=== PATIENT | female | born 1965 | race African-American/Black ===

== ENCOUNTER → 2016-07-01 | Outpatient (CLI) | payer BC ==
--- NOTE | 2016-07-01 15:55 | RAD ---
DATE: 07/01/2016: EXAM: DIGITAL SCREEN BILAT W/CAD HISTORY: Routine screening COMPARISON: Baseline study This study was interpreted with the benefit of Computerized Aided Detection (CAD). FINDINGS: The breasts are heterogeneously dense which can limit the sensitivity of mammography. No breast mass is identified. A few scattered benign type calcifications are noted. No suspicious microcalcifications are evident. Benign-appearing lymph node type densities are present in the axillary regions. IMPRESSION: There is no mammographic evidence of malignancy in either breast. BI-RADS CATEGORY: 2 BENIGN FINDING(S) RECOMMENDED FOLLOW-UP: 12M 12 MONTH FOLLOW-UP PQRS compliance statement: Patient information was entered into a reminder system with a target due date for the next mammogram. Mammography is a sensitive method for finding small breast cancers, but it does not detect them all and is not a substitute for careful clinical examination. A negative mammogram does not negate a clinically suspicious finding and should not result in delay in biopsying a clinically suspicious abnormality. "Our facility is accredited by the [employer] Mammography Program."
== END | disposition home or self-care (01) ==
LOC: MAMMO 12:26
PROVIDERS: ATTEND Internal Medicine
DX: Z12.31 Encounter for screening mammogram for malignant neoplasm of breast (principal)
CPT/HCPCS: G0202; 77067

== ENCOUNTER → 2016-07-12 | Outpatient (CLI) | payer OTHER, BC ==
--- NOTE | 2016-07-12 16:39 | RAD ---
PROCEDURE MRI lumbar spine without contrast. HISTORY Mid back pain and right hip pain. TECHNIQUE Sagittal T1, sagittal T2, sagittal STIR, axial T1, and axial T2 sequences are provided. COMPARISON None. FINDINGS There is no malalignment. There is endplate edema which appears degenerative at L4-L5. There is fatty replacement of the endplates at L3-L4. Narrowing of the interspace is greatest at L3-L4. There is diffuse disc desiccation. There is an L1 hemangioma. Conus medullaris is normal in signal intensity and in position. Subcutaneous edema is noted. The numbering system assumes 5 lumbar type vertebral bodies. Findings by individual level are as follows: L1-L2: There is no canal or foraminal compromise. L2-L3: There is a mild disc bulge and minimal facet hypertrophy without canal stenosis. There is minimal foraminal narrowing. L3-L4: There is a disc osteophyte complex and facet hypertrophy. There is a shallow right paracentral protrusion superimposed on the disc osteophyte complex. There is mild to moderate right and mild left foraminal narrowing. L4-L5: There is a diffuse disc bulge and there is a should broad-based shallow left paracentral protrusion. There is facet and ligamentum flavum hypertrophy. There is mild left lateral recess narrowing. Midline AP diameter of the thecal sac is not significantly narrowed, 13 millimeters. There is minimal foraminal narrowing. L5-S1: Disc bulge and facet hypertrophy are noted without canal or foraminal compromise. IMPRESSION Mild degenerative changes in the lumbar spine, as described above. Electronically signed by: Christian Murphy MD (Jul 12, 2016 16:37:27)
== END | disposition home or self-care (01) ==
LOC: MRI 08:00
PROVIDERS: ATTEND Physical Medicine & Rehabilitation
DX: M51.37 Other intervertebral disc degeneration, lumbosacral region (principal)
CPT/HCPCS: 72148

== ENCOUNTER → 2020-02-06 | Outpatient (CLI) | payer OTHER ==
--- NOTE | 2020-02-06 16:09 | KCIC ---
Examination: 1. Bilateral standing AP view of both knees INDICATION: Painful DJD of left knee. FINDINGS: Standing AP view both knees shows anatomic alignment with mild medial left knee joint space narrowing. No fracture or aggressive appearing osseous lesions. There is remodeling of the proximal left fibula incidentally noted that could reflect sequelae of an old, healed fracture. To lesser extent, minimal osteophytic spurring is identified in the medial right femoral condyle as well but the joint space narrowing is not as apparent as it is on the left. Soft tissues are unremarkable. IMPRESSION: Left knee degenerative changes most conspicuous in the medial compartment and proximal left fibular remodeling, suggestive of an old, healed fracture. No acute osseous abnormality noted. Electronically signed by: Jose Myrick MD (02/06/2020 4:06 PM) [id number]
== END ==
LOC: KCIC 14:43
PROVIDERS: ATTEND Physical Medicine & Rehabilitation
DX: M17.12 Unilateral primary osteoarthritis, left knee (principal)
CPT/HCPCS: 73565